=== PATIENT | male | born 1990 | race Caucasian/White ===

== ENCOUNTER 2020-08-28 05:53 | Emergency (ER) | payer OTHER, SELFPAY ==
[2020-08-28 05:57] VITALS: BP 162/109; PULSE 127; RESP 22; TEMP 35.7; O2SAT 100
[2020-08-28 06:10] VITALS: BP 176/104; PULSE 124; RESP 22; TEMP 37.1; O2SAT 99; BMI 21.7
--- NOTE | 2020-08-28 06:22 | ED.ABDPAIN ---
HPI - Abdominal Pain General Chief Complaint: Abdominal Pain Stated Complaint: Abd pain Time Seen by Provider: 08/28/20 06:22 Source: patient Mode of arrival: ambulatory Limitations: no limitations History of Present Illness MD elicited complaint: abdominal pain Pertinent past history: other (chronic belching hx of same in past for years) Onset (ago): year(s) (few) Pain Consistency: constant Location: epigastric Severity: mild Quality: fullness Radiation: epigastric Migration to: no migration Exacerbating factors: eating Relieving factors: nothing Context: history of similar episodes and other (states worse with anxiety has loud belches and then almost vomits not sure if it is a tic related to anxiety) Associated symptoms: nausea and other (ANXIETY) Treatments prior to arrival: other (DENIES) Related Data Previous Rx's Medication Instructions Recorded omeprazole 20 mg PO DAILY #14 cap 08/28/20 ondansetron 4 mg PO Q8H PRN #20 tab 08/28/20 Allergies Allergy/AdvReac Type Severity Reaction Status Date / Time amoxicillin [AMOXICILLIN] Allergy Unknown RASH Verified 08/28/20 06:16 Review of Systems Review of Systems Constitutional : No Weight loss, No Fever, No Chills ENT/Mouth : No sore throat, No Rhinorrhea Eyes: No Swelling, No Redness Cardiovascular : No Chest Pain, No SOB, NoEdema Respiratory : No Cough, No Sputum, No Wheezing Gastrointestinal : Positive Nausea, Positive Vomiting, positive Diarrhea at times, positive abdominal Pain, No Hematochezia, No Melena Genitourinary : No Dysuria, No Urinary Frequency, No Hematuria, No Urgency Musculoskeletal : No joint pain, No Myalgias, No Joint Swelling Skin : No Skin Lesions, No rash Neuro : No Weakness, No Numbness, No Dizziness, No Headache Psych : positive Anxiety/Panic, No Depression All other systems reviewed and are negative. Physical Exam Vital Signs: Vital Signs: Vital Signs Temp Pulse Resp BP Pulse Ox 08/28/20 08:00 100 18 131/92 H 97 08/28/20 06:10 98.8 F 124 H 22 H 176/104 H 99 08/28/20 05:57 96.3 F L 127 H 22 H 162/109 H 100 Body Mass Index 21.7 Appearance: Alert. Oriented X3. No acute distress. Anxious cannot sit still Eyes: Pupils equal, round and reactive to light. ENT: Pharynx normal. Neck: Normal inspection. Neck supple. CVS: Normal heart rate and rhythm. Pulses normal. Respiratory: No respiratory distress. Breath sounds normal. Abdomen: Soft and nontender. 1 loud sound heard during interview but not actual belch Skin: Skin warm and dry. Normal skin color. Normal skin turgor. Extremities: No lower extremity edema. No calf ttp Neuro: Oriented X 3. No motor deficit. No sensory deficit. Course Course Course Narrative: patient cleared at this time, feels better, VS and anxiety improved MDM - Abdominal Pain MDM Narrative Medical decision making narrative: 30 yo male with schizoaffective disorder at this time hx of chronic abdominal pain and belching with workups in past comes in with his belching worsening which might be anxiety related, given benign exam of abdomen and years of this doubt significant pathology this seems to be a tic driven by his anxiety Lab Data Result diagrams: 08/28/20 07:28 08/28/20 07:28 Labs: Lab Results 08/28/20 08/28/20 08/28/20 Range/Units 07:28 07:28 07:28 WBC 14.2 H (4.8-10.8) X10*3/uL RBC 4.40 L (4.60-5.80) X10*6/uL Hgb 12.1 L (14.0-18.0) g/dl Hct 37.7 L (42-52) % MCV 85.7 (80-98) fL MCH 27.5 (27.0-33.0) pg MCHC 32.1 (31.0-36.0) g/dl RDW 14.0 (11.0-16.0) % Plt Count 275 (160-400) X10*3/uL MPV 10.0 (9.4-12.4) fL Immature Gran % (Auto) 0.4 (0.0-0.4) % Neut % (Auto) 63.1 (45-73) % Lymph % (Auto) 26.7 (20-40) % [place] % (Auto) 7.1 (2-11) % Eos % (Auto) 2.5 (0-4) % Baso % (Auto) 0.2 (0-2) % Lymph # (Auto) 3.8 (1.2-4.9) X10*3/uL [place] # (Auto) 1.0 (0.1-1.2) X10*3/uL Eos # (Auto) 0.4 (0.0-0.4) X10*3/uL Baso # (Auto) 0.0 (0.0-0.2) X10*3/uL Abs Immat Gran (auto) 0.06 H (0.00-0.03) X10*3/uL Absolute Neuts (auto) 9.0 H (2.0-8.3) X10*3/uL Absolute Nucleated RBC 0.000 (0.0-0.012) X10*3/uL Nucleated RBC % (auto) 0.0 (0.0-0.2) /100WBC Sodium 139 (135-145) mmol/L Potassium 4.0 (3.3-5.1) mmol/l Chloride 105 (96-108) mmol/L Carbon Dioxide 28 (22-29) mmol/L Anion Gap 10 L (12-20) BUN 13 (9-16) mg/dL Creatinine 0.97 (0.5-1.4) mg/dL Estim Creat Clear Calc 120.0 Estimated GFR > 60 Random Glucose 112 (60-115) mg/dL Calcium 9.3 (8.4-10.2) mg/dL Total Bilirubin < 0.2 (0.0-1.0) mg/dL Direct Bilirubin < 0.2 (0.0-0.5) mg/dL AST 18 (5-37) U/L ALT 21 (0-40) U/L Alkaline Phosphatase 92 (39-117) U/L Total Protein 6.8 (6.5-8.0) g/dL Albumin 4.1 (3.5-5.0) g/dL Lipase 33 (8-78) U/L [place] 0.36 L (0.60-1.20) mmol/L Discharge Plan Discharge Clinical Impression: Belching Abdominal pain Qualifiers: Abdominal location: epigastric Qualified Code(s): R10.13 - Epigastric pain Patient Disposition: Home, Self-Care Instructions: Abdominal Pain (ED) Prescriptions: New omeprazole 20 mg capsule,delayed release(DR/EC) 20 mg PO DAILY Qty: 14 RF: 0 ondansetron 4 mg tablet,disintegrating 4 mg PO Q8H PRN (Reason: nausea and vomiting) Qty: 20 RF: 0 Referrals: Physician,Unknown [Primary Care Provider] - 2 days (if not better please call your doctor) Stand Alone Forms: Work/School Release COUNT INCLUDES THE [facility] Past Medical History Medical History Affective psychosis Social History Social History (Updated 08/28/20 @ 06:39 by Stephanie Loya DO) Alcohol intake: never Smoking Status: Current every day smoker Use of substances other than those prescribed or required for medical reasons: No Substance Use Type: Former Substance User Advance Directives: No
[2020-08-28] MEDS: Lidocaine HCl Viscous 2 % 15 ML SOLUTION MUCOUS MEM (07:10)
[2020-08-28] MEDS: LORazepam 1 MG TABLET PO ×2 (07:10→08:21)
[2020-08-28] MEDS: Magnesium Hydrox/Alum Hydrox 30 ML ORAL.SUSP PO (07:10)
[2020-08-28 07:31] LABS: MANUAL DIFF FLAG NO
[2020-08-28 07:33] LABS: Basophils Percent Auto 0.2 % (0-2); Eosinophils Absolute Auto 0.4 X10*3/uL (0.0-0.4); Eosinophils Percent Auto 2.5 % (0-4); Hematocrit 37.7 % (42-52); Hemoglobin 12.1 g/dl (14.0-18.0); Imm Gran Abs Auto 0.06 X10*3/uL (0.00-0.03); Imm Gran Pct Auto 0.4 % (0.0-0.4); Lymphocytes Absolute Auto 3.8 X10*3/uL (1.2-4.9); Lymphocytes Percent Auto 26.7 % (20-40); Mean Corpuscular HGB Conc 32.1 g/dl (31.0-36.0); Mean Corpuscular Hemoglobin 27.5 pg (27.0-33.0); Mean Corpuscular Volume 85.7 fL (80-98); Monocytes Percent Auto 7.1 % (2-11); Neutrophils Percent Auto 63.1 % (45-73); Platelet Count 275 X10*3/uL (160-400); White Blood Count 14.2 X10*3/uL (4.8-10.8)
[2020-08-28 08:00] VITALS: BP 131/92; PULSE 100; RESP 18; O2SAT 97
[2020-08-28 08:01] LABS: Lithium 0.36 mmol/L (0.60-1.20)
[2020-08-28 08:13] LABS: Alanine Aminotransferase 21 U/L (0-40); Albumin Level 4.1 g/dL (3.5-5.0); Alkaline Phosphatase 92 U/L (39-117); Anion Gap 10 (12-20); Aspartate Amino Transferase 18 U/L (5-37); Blood Urea Nitrogen 13 mg/dL (9-16); Calcium 9.3 mg/dL (8.4-10.2); Carbon Dioxide 28 mmol/L (22-29); Chloride 105 mmol/L (96-108); Estimated Glomerular Filt Rate > 60; Glucose Random 112 mg/dL (60-115); Lipase 33 U/L (8-78); Sodium 139 mmol/L (135-145); Total Protein 6.8 g/dL (6.5-8.0)
[2020-08-28 08:26] LABS: Bilirubin Direct < 0.2 mg/dL (0.0-0.5); Bilirubin Total < 0.2 mg/dL (0.0-1.0)
== END 2020-08-28 09:18 | disposition home or self-care (01) ==
PROVIDERS: Emergency Provider Emergency Medicine
DX: R10.13 Epigastric pain (principal); F41.1 Generalized anxiety disorder; F43.0 Acute stress reaction; Z79.899 Other long term (current) drug therapy
CPT/HCPCS: 36415; 80048; 80076; 80178; 83690; 85025; 99283; 99284

== ENCOUNTER 2020-12-04 07:07 | Emergency (ER) | payer OTHER, SELFPAY ==
--- NOTE | 2020-12-04 08:03 | ED.GENADULT ---
HPI - General Adult General Chief complaint: Upper Respiratory Symptoms Stated complaint: covid symptoms Time Seen by Provider: 12/04/20 07:59 Source: patient Mode of arrival: ambulatory Limitations: no limitations History of Present Illness HPI narrative: Patient's very anxious feel that he has COVID lost taste sensation since last night denies any fever no cough no shortness of breath very paranoid about COVID previous 2 tests last year were negative Onset (ago): day(s) (1) Related Data Previous Rx's Medication Instructions Recorded omeprazole 20 mg PO DAILY #14 cap 08/28/20 ondansetron 4 mg PO Q8H PRN #20 tab 08/28/20 azithromycin 500 mg tablet 500 mg PO ONCE 1 Days #4 tab 09/19/20 doxycycline hyclate 100 mg tablet 100 mg PO BID #28 tab 09/19/20 Allergies Allergy/AdvReac Type Severity Reaction Status Date / Time amoxicillin [AMOXICILLIN] Allergy Unknown RASH Verified 08/28/20 06:16 Review of Systems Review of Systems: Constitutional : No Weight loss, No Fever, No Chills ENT/Mouth : No sore throat, No Rhinorrhea Eyes: No Eye Pain, No Swelling Cardiovascular : No Chest Pain, no palpitations Respiratory : No Cough, No Sputum, no shortness of breath Gastrointestinal : no Nausea, No Vomiting, No Diarrhea, No abdominal Pain, no black stools Genitourinary : No Dysuria, No Urinary Frequency Musculoskeletal : No joint pain, No Myalgias, No Joint Swelling Skin : No Skin Lesions, No rash Neuro : No Weakness, No Numbness, No Dizziness, No Headache Psych : ++Anxiety/Panic, No Depression Heme/Lymph: No Bruising, No Lymphadenopathy Endocrine : No Polyuria, No Polydipsia All other systems reviewed and are negative [facility] Past Medical History Medical History Affective psychosis Social History Social History Alcohol intake: never Smoking Status: Current every day smoker Substance Use Type: Former Substance User Advance Directives: No Advance Directives Information Provided: No Physical Exam Vital Signs: Vital Signs: Last Vital Signs Temp 99 F 12/04/20 08:04 Pulse 109 H 12/04/20 08:04 Resp 16 12/04/20 08:04 BP 155/92 H 12/04/20 08:04 Pulse Ox 99 12/04/20 08:04 Body Mass Index 22.4 Appearance: Alert. Oriented X3. No acute distress. Very anxious Eyes: Pupils equal, round and reactive to light. ENT: Pharynx normal. Neck: Normal inspection. Neck supple. CVS: Normal heart rate and rhythm. Pulses normal. Respiratory: No respiratory distress. Breath sounds normal. Abdomen: Soft and nontender. Bowel sounds are present, no mass palpable, no CVA tenderness Skin: Skin warm and dry. Normal skin color. Normal skin turgor. Extremities: No lower extremity edema. Neuro: Oriented X 3. No motor deficit. No sensory deficit. Medical Decision Making Lab Data Lab results reviewed: Yes I reviewed the patient's lab results. Labs: Lab Results 12/04/20 Range/Units 08:11 COVID-19 (SHAYY) Negative (Negative) COVID-19 Clin Com See Note Discharge Plan Discharge Clinical Impression: COVID-19 Patient Disposition: Home, Self-Care Instructions: COVID-19 (Coronavirus Disease 2019) (ED) Additional Instructions: Give social distancing. Follow with PCP if high fever/ shortness of breath/not feeling better Prescriptions: No Action azithromycin 500 mg tablet 500 mg PO ONCE 1 Days Qty: 4 RF: 0 doxycycline hyclate 100 mg tablet 100 mg PO BID Qty: 28 RF: 0 omeprazole 20 mg capsule,delayed release(DR/EC) 20 mg PO DAILY Qty: 14 RF: 0 ondansetron 4 mg tablet,disintegrating 4 mg PO Q8H PRN (Reason: nausea and vomiting) Qty: 20 RF: 0
[2020-12-04 08:04] VITALS: BP 155/92; PULSE 109; RESP 16; TEMP 37.2; O2SAT 99; BMI 22.4
[2020-12-04 08:40] LABS: COVID-19 Test Negative (Negative)
== END 2020-12-04 09:00 | disposition home or self-care (01) ==
PROVIDERS: Emergency Provider Internal Medicine
DX: F41.9 Anxiety disorder, unspecified (principal); Z20.822 Contact with and (suspected) exposure to COVID-19; F17.200 Nicotine dependence, unspecified, uncomplicated
CPT/HCPCS: 36415; 87635; 99283

== ENCOUNTER 2021-11-24 01:50 | Inpatient (IN) | payer MEDICAID, SELFPAY ==
[2021-11-24] VITALS (7 sets, daily range): BP systolic 110–178; BP diastolic 64–80; PULSE 85–120; RESP 16–20; TEMP 36.7–38.4; O2SAT 97–100; BMI 21.1; BMI 21.7
--- NOTE | ~2021-11-24 | XR_ITS ---
EXAMINATION: XR CHEST CLINICAL INFORMATION: Fever. COMPARISON: Chest CTA of 04/26/2020 and chest x-ray of 04/24/2020 TECHNIQUE: Frontal view of the chest was obtained. FINDINGS: No significant abnormality is noted involving the heart, lungs, mediastinum, bony thorax or soft tissues. XR/XR chest 1V IMPRESSION: No radiographic evidence of pneumonia at this time. No acute pulmonary process. No significant interval change is noted compared to previous x-ray.
--- NOTE | ~2021-11-24 | CT_ITS ---
EXAMINATION: CT HUMERUS WITH CONTRAST, RIGHT CLINICAL INFORMATION: Known IV drug user. Swollen humerus. COMPARISON: None TECHNIQUE: Axial imaging. 85 mL Omnipaque 350. Images obtained after contrast administration. Additional delayed axial images obtained. Sagittal and coronal reconstructions. (Telephone call,, imaging reviewed with the technologist). This CT examination was performed using dose optimization techniques as appropriate, variously including the following: *Automated exposure control *Adjustment of mA and/or kV according to patient size (this includes techniques or standardized protocols for targeted exams where dose is matched to indication/reason for exam; i.e. extremities or head) *Use of iterative reconstruction technique DLP: 406 mGy-cm FINDINGS: Suboptimal imaging. Images are grainy. Suboptimal contrast enhancement. Evaluation is very limited on the provided imaging. There is apparent area of low-attenuation /heterogeneity in the muscles along the anterior aspect of the distal humerus. The margins are not well seen. This is estimated to extend over distance approximately 11.3 cm craniocaudal,; approximately 5.2 cm transverse, 2.4 cm AP when measured on image 7:112. These findings are not well evaluated, could represent myositis, infectious or inflammatory process. There is marked diffuse subcutaneous edema and soft tissue swelling in the humerus. At the level of the distal humerus, apparent area of more confluent low-attenuation in the anterior subcutaneous tissues and perhaps in anterior aspect of the muscle measuring 2.3 x 2.2 cm, (transverse, AP) image 3:114, see smiley image . This is not well-visualized on the reconstructions. The craniocaudal is estimated to be approximately 4 cm. This is of uncertain etiology. This could reflect an area of phlegmonous changes, abscess. No additional areas of gross peripherally enhancing collections identified. The visualized bones appear intact. No evidence of acute fracture or aggressive erosive changes. CT/CT humerus RT w con IMPRESSION: Suboptimal imaging, suboptimal visualization evaluation of the right humerus. Apparent ill-defined area of low attenuation and heterogeneity in the muscles along the anterior aspect of the distal humerus. This is suboptimally evaluated. This could represent an area of edema, myositis, infectious or inflammatory process. Apparent area of more confluent low-attenuation in the anterior subcutaneous tissues and perhaps the anterior aspect of the underlying muscle in the distal humerus. This is estimated to measure approximately 2.3 x 2.2 cm on the axial imaging. This is suboptimally imaged and evaluated. This could reflect an area of phlegmonous change, abscess. Recommend close clinical correlation. Additional/follow-up imaging as clinically warranted. The report will be called to the ordering clinician by a [facility] Physician Account Retention Representative.
[2021-11-24 02:38] LABS: MANUAL DIFF FLAG NO
[2021-11-24 02:46] LABS: Basophils Percent Auto 0.1 % (0-2); Eosinophils Percent Auto 0.2 % (0-4); Hematocrit 35.9 % (42.0-52.0); Hemoglobin 11.4 g/dl (14.0-18.0); Imm Gran Pct Auto 0.4 % (0.0-0.4); Lymphocytes Absolute Auto 1.3 X10*3/uL (1.2-4.9); Lymphocytes Percent Auto 5.7 % (20-40); Mean Corpuscular HGB Conc 31.8 g/dl (31.0-36.0); Mean Corpuscular Hemoglobin 26.9 pg (27.0-33.0); Mean Corpuscular Volume 84.7 fL (80.0-98.0); Mean Platelet Volume 9.8 fL (9.4-12.4); Monocytes Absolute Auto 1.1 X10*3/uL (0.1-1.2); Monocytes Percent Auto 4.8 % (2-11); Neutrophils Absolute Auto 19.8 x10*3/uL (2.0-8.3); Neutrophils Percent Auto 88.8 % (45-73); Platelet Count 243 X10*3/uL (160-400); Red Blood Count 4.24 X10*6/uL (4.60-5.80); Red Cell Distribution Width 14.8 % (11.0-16.0); White Blood Count 22.3 X10*3/uL (4.8-10.8)
[2021-11-24 02:54] LABS: COVID-19 Test Negative (Negative)
[2021-11-24 03:01] LABS: Lactic Acid 1.3 mmol/L (0.5-2.0)
[2021-11-24 03:05] LABS: Alanine Aminotransferase 25 U/L (0-40); Albumin Level 3.5 g/dL (3.5-5.0); Alkaline Phosphatase 79 U/L (39-117); Anion Gap 12 (12-20); Aspartate Amino Transferase 18 U/L (5-37); Bilirubin Total 0.5 mg/dL (0.0-1.0); Blood Urea Nitrogen 6 mg/dL (9-16); Calcium 8.6 mg/dL (8.4-10.2); Carbon Dioxide 24 mmol/L (22-29); Chloride 104 mmol/L (96-108); Creatinine Clr Calc Pharmacy 117.7; Estimated Glomerular Filt Rate > 60; Glucose Random 116 mg/dL (60-115); Potassium 3.5 mmol/L (3.3-5.1); Sodium 136 mmol/L (135-145); Total Protein 6.5 g/dL (6.5-8.0)
--- NOTE | 2021-11-24 07:03 | PC.NURSE ---
Pt received from recruiting and selection consultant: Pt AOX4 and offers no complaints- resting now. Cellulitis with pus filled sac noted to RAC. Pt is known IV meth user. Heart sounds normal, lungs clear.
--- NOTE | 2021-11-24 07:16 | ED.SKABFB ---
HPI - Skin/Abscess/Foreign Bdy General Chief complaint: Skin/Abscess/Foreign Body Stated complaint: R ARM PAIN Time Seen by Provider: 11/24/21 07:05 Source: patient Mode of arrival: ambulatory Limitations: no limitations History of Present Illness HPI narrative: Patient comes to the emergency room complaining of an upper arm infection on the right side. Patient states that he usually uses IV crystal meth. He injected in his right arm approximately 4 days ago but he missed the vein. Patient states that since then, he has had increased pain, swelling and redness in his right arm. Patient also complaining of subjective fever. Patient states that he has COVID like symptoms as well although he already had COVID about a year ago Related Data Previous Rx's Medication Instructions Recorded omeprazole 20 mg capsule,delayed 20 mg PO DAILY #14 cap 08/28/20 release ondansetron 4 mg disintegrating 4 mg PO Q8H PRN #20 tab 08/28/20 tablet azithromycin 500 mg tablet 500 mg PO ONCE 1 Days #4 tab 09/19/20 doxycycline hyclate 100 mg tablet 100 mg PO BID #28 tab 09/19/20 Allergies Allergy/AdvReac Type Severity Reaction Status Date / Time amoxicillin [AMOXICILLIN] Allergy Unknown RASH Verified 11/24/21 02:19 Review of Systems Review of Systems: Constitutional : No Weight loss, complaining of fever and chills, No Night Sweats, No Fatigue, No Malaise ENT/Mouth : No Hearing loss, No Ear Pain, No Nasal Congestion, No Sinus Pain, No Hoarseness, No sore throat, No Rhinorrhea, No Swallowing Difficulty Eyes: No Eye Pain, No Swelling, No Redness, No Foreign Body, No Discharge, No Vision Changes Cardiovascular : No Chest Pain, No SOB, No Dyspnea on Exertion, No Orthopnea, No Edema, No Palpitations Respiratory : No Cough, No Sputum, No Wheezing, No Smoke Exposure, No Dyspnea Gastrointestinal : No Nausea, No Vomiting, No Diarrhea, No Constipation, No abdominal Pain, No Hematochezia, No Melena Genitourinary : no irregular bleeding, No Dysuria, No Urinary Frequency, No Hematuria, No Urinary Incontinence, No Urgency, No Flank Pain, No Urinary Flow Changes, No Hesitancy Musculoskeletal : No joint pain, No Myalgias, No Joint Swelling Skin : Complaining of redness, swelling, and tenderness to touch on the skin over his right upper arm above the elbow Neuro : No Weakness, No Numbness, No Paresthesias, No Loss of Consciousness, No Dizziness, No Headache Psych : No Anxiety/Panic, No Depression, No SI/HI/AH/VH, No Social Issues, Heme/Lymph: No Bruising, No Bleeding,No Lymphadenopathy Endocrine : No Polyuria, No Polydipsia, No Temperature Intolerance PMF Past Medical History Medical History Affective psychosis Substance abuse Social History Social History Alcohol intake: never Substance Use Type: Former Substance User Advance Directives: No Physical Exam Vital Signs: Vital Signs: Last Vital Signs Temp 101.1 F H 11/24/21 07:47 Pulse 103 H 11/24/21 07:04 Resp 16 11/24/21 07:04 BP 113/69 11/24/21 07:04 Pulse Ox 97 11/24/21 07:04 BMI result Body Mass Index 21.1 Const: Other: Appearance: Alert. Oriented X3. No acute distress. Ill-appearing Eyes: Pupils equal, round and reactive to light. ENT: Pharynx normal. Neck: Normal inspection. Neck supple. No lymph nodes noted. No crepitus CVS: Normal heart rate and rhythm. Pulses normal. Normal S1 and S2, no murmurs Respiratory: No respiratory distress. Breath sounds normal. No Wheezing. No rales Abdomen: Soft and nontender. No rigidity. No distention Skin: Skin warm , pale and clammy. Patient has redness and swelling in the right upper arm. Patient is able to flex and extend his elbow but hurts his upper arm. Patient states he has no pain at the elbow joint. Patient able to close and open his hand Extremities: No lower extremity edema. No Lacerations. No Rash, no palpable/drainable abscess and right upper arm Neuro: Oriented X 3. No motor deficit. No sensory deficit. Moving all extermities. No slurred speech. Course Course Course Narrative: Patient has been in the emergency room for approximately 5 hours. Approximately 7 minutes ago, at 07:10 I got to see the patient for the 1st time. On physical exam patient is tachycardic and feels warmer than 99.1, I asked patient's nurse to take a rectal temperature. Patient is ill-appearing. Patient was started on vancomycin, Zosyn, and IV fluids. Patient states that he has had COVID in the past, but he is having recurrent symptoms, patient requesting to be tested again. Patient is negative for COVID-19. Patient is being admitted for cellulitis. MDM - Skin/Abscess/Foreign Bdy Lab Data Result diagrams: 11/24/21 02:30 11/24/21 02:30 Labs: Lab Results 11/24/21 11/24/21 11/24/21 Range/Units 02:30 02:30 02:30 WBC 22.3 H (4.8-10.8) X10*3/uL RBC 4.24 L (4.60-5.80) X10*6/uL Hgb 11.4 L (14.0-18.0) g/dl Hct 35.9 L (42.0-52.0) % MCV 84.7 (80.0-98.0) fL MCH 26.9 L (27.0-33.0) pg MCHC 31.8 (31.0-36.0) g/dl RDW 14.8 (11.0-16.0) % Plt Count 243 (160-400) X10*3/uL MPV 9.8 (9.4-12.4) fL Immature Gran % (Auto) 0.4 (0.0-0.4) % Neut % (Auto) 88.8 H (45-73) % Lymph % (Auto) 5.7 L (20-40) % [place] % (Auto) 4.8 (2-11) % Eos % (Auto) 0.2 (0-4) % Baso % (Auto) 0.1 (0-2) % Lymph # (Auto) 1.3 (1.2-4.9) X10*3/uL [place] # (Auto) 1.1 (0.1-1.2) X10*3/uL Eos # (Auto) 0.0 (0.0-0.4) X10*3/uL Baso # (Auto) 0.0 (0.0-0.2) X10*3/uL Abs Immat Gran (auto) 0.10 H (0.00-0.03) X10*3/uL Absolute Neuts (auto) 19.8 H (2.0-8.3) x10*3/uL Absolute Nucleated RBC 0.000 (0.0-0.012) X10*3/uL Nucleated RBC % (auto) 0.0 (0.0-0.2) /100WBC Sodium 136 (135-145) mmol/L Potassium 3.5 (3.3-5.1) mmol/L Chloride 104 (96-108) mmol/L Carbon Dioxide 24 (22-29) mmol/L Anion Gap 12 (12-20) BUN 6 L (9-16) mg/dL Creatinine 0.95 (0.5-1.4) mg/dL Estim Creat Clear Calc 117.7 Estimated GFR > 60 Random Glucose 116 H (60-115) mg/dL Lactic Acid 1.3 (0.5-2.0) mmol/L Calcium 8.6 D (8.4-10.2) mg/dL Total Bilirubin 0.5 (0.0-1.0) mg/dL AST 18 (5-37) U/L ALT 25 (0-40) U/L Alkaline Phosphatase 79 (39-117) U/L Total Protein 6.5 (6.5-8.0) g/dL Albumin 3.5 (3.5-5.0) g/dL COVID-19 (SHAYY) (Negative) COVID-19 Clin Com 11/24/21 Range/Units 02:30 WBC (4.8-10.8) X10*3/uL RBC (4.60-5.80) X10*6/uL Hgb (14.0-18.0) g/dl Hct (42.0-52.0) % MCV (80.0-98.0) fL MCH (27.0-33.0) pg MCHC (31.0-36.0) g/dl RDW (11.0-16.0) % Plt Count (160-400) X10*3/uL MPV (9.4-12.4) fL Immature Gran % (Auto) (0.0-0.4) % Neut % (Auto) (45-73) % Lymph % (Auto) (20-40) % [place] % (Auto) (2-11) % Eos % (Auto) (0-4) % Baso % (Auto) (0-2) % Lymph # (Auto) (1.2-4.9) X10*3/uL [place] # (Auto) (0.1-1.2) X10*3/uL Eos # (Auto) (0.0-0.4) X10*3/uL Baso # (Auto) (0.0-0.2) X10*3/uL Abs Immat Gran (auto) (0.00-0.03) X10*3/uL Absolute Neuts (auto) (2.0-8.3) x10*3/uL Absolute Nucleated RBC (0.0-0.012) X10*3/uL Nucleated RBC % (auto) (0.0-0.2) /100WBC Sodium (135-145) mmol/L Potassium (3.3-5.1) mmol/L Chloride (96-108) mmol/L Carbon Dioxide (22-29) mmol/L Anion Gap (12-20) BUN (9-16) mg/dL Creatinine (0.5-1.4) mg/dL Estim Creat Clear Calc Estimated GFR Random Glucose (60-115) mg/dL Lactic Acid (0.5-2.0) mmol/L Calcium (8.4-10.2) mg/dL Total Bilirubin (0.0-1.0) mg/dL AST (5-37) U/L ALT (0-40) U/L Alkaline Phosphatase (39-117) U/L Total Protein (6.5-8.0) g/dL Albumin (3.5-5.0) g/dL COVID-19 (SHAYY) Negative (Negative) COVID-19 Clin Com See Note Discharge Plan Discharge Clinical Impression: Cellulitis, Active substance abuse Patient Disposition: Admitted As Inpatient Prescriptions: No Action azithromycin 500 mg tablet 500 mg PO ONCE 1 Days Qty: 4 RF: 0 doxycycline hyclate 100 mg tablet 100 mg PO BID Qty: 28 RF: 0 omeprazole 20 mg capsule,delayed release(DR/EC) 20 mg PO DAILY Qty: 14 RF: 0 ondansetron 4 mg tablet,disintegrating 4 mg PO Q8H PRN (Reason: nausea and vomiting) Qty: 20 RF: 0
[2021-11-24] MEDS: Piperacillin Sodium/Tazobactam 4.5 GM in 0.9 % Sodium Chloride 100 ML IV (08:23)
[2021-11-24] MEDS: Acetaminophen 325 MG TABLET 650 MG PO (08:23)
[2021-11-24] MEDS: 0.9 % Sodium Chloride 2,500 ML 999 ML IVCONT (08:23)
[2021-11-24] MEDS: vancomycin HCL 750 MG in 0.9 % Sodium Chloride 250 ML 265 MG IV (09:05)
[2021-11-24 10:24] LABS: Amphetamine Screen Urine POSITIVE (Not Detect); Barbiturates, Urine Not Detected (Not Detect); Benzodiazepines Screen Urine POSITIVE (Not Detect); Cannabinoid Screen Urine Not Detected (Not Detect); Cocaine Screen Urine Not Detected (Not Detect); Fentanyl, urine POSITIVE (Not Detect); Opiate Screen Urine Not Detected (Not Detect); Phencyclidine Screen Urine Not Detected (Not Detect)
--- NOTE | 2021-11-24 10:24 | PHA.MEDREC ---
Pharmacy Consult ? Medication Reconciliation Pharmacy has completed the medication reconciliation. Patient has no recent fill history. Patient was not able to discuss medications, out of it and not speaking. Called the emergency contact and got an out of service message.
[2021-11-24 10:44] LABS: Appearance Urine CLEAR; Color Urine STRAW; Glucose Urine UA NEG (NEG); Leukocyte Esterase Urine NEG (NEG); Nitrite Urine NEG (NEG); PH 6.5 (5.0-8.0); Specific Gravity - Urine <= 1.005 (1.005-1.025); Urine Blood NEG (NEG); Urine Ketones NEG (NEG); Urine Protein NEG (NEG-TRACE)
--- NOTE | 2021-11-24 12:02 | PM.IMHP ---
History of Present Illness Date of Service: 11/24/21 Chief Complaint: With right upper extremity pain 31 years old male With IV drug abuse history, GERD who presents to the hospital with right upper extremity pain and swelling. The patient reports he uses IV crystal meth any injected himself almost 4 days ago but Mr. Rai and since then he noticed worsening in the swelling and pain in his right upper extremity. He reporting chills, fever, feeling sick with no drainage noted from the area. In the emergency blood work showed an evidence of sepsis. He was started on IV antibiotics broad-spectrum and brought to the hospital for further evaluation and treatment. Review of Systems Review of Systems: Reporting fever, chillsAnd generalized weakness No chest pain, palpitation No shortness of breath or coughing No abdominal pain, nausea or vomiting No urinary symptoms Right upper extremity pain and swelling with erythema noted. [facility] Medical History Affective psychosis Substance abuse Social History Household Members: Friend(s) Housing: Homeless Do you presently have visiting nurse or other home services: No Alcohol intake: never Patient Tobacco Use Status: Current everyday Tobacco user Tobacco use type: Cigarette Cigarettes Per Day: 10 Substance Use Type: IV Drugs service: No Current occupational status: unemployed Meds Allergies Allergy/AdvReac Type Severity Reaction Status Date / Time amoxicillin [AMOXICILLIN] Allergy Unknown RASH Verified 11/24/21 02:19 Active Medications: Current Medications Acetaminophen (Acetaminophen 325 Mg Tablet) 650 mg PO Q6H PRN PRN Reason: Pain, Mild (Pain Scale 1-3) Vancomycin HCl 1,000 mg/ (Sodium Chloride) 270 mls @ 270 mls/hr IV Q8H [facility] Ketorolac Tromethamine (Ketorolac Tromethamine 30 Mg/Ml Vial) 30 mg IVPUSH Q6H PRN PRN Reason: Pain, Mild (Pain Scale 1-3) Stop: 11/29/21 11:55 Ondansetron HCl (Ondansetron Hcl 4 Mg/2 Ml Vial) 4 mg IVPUSH Q8H PRN PRN Reason: Nausea and Vomiting Pharmacy Consult (Consult Rx Vancomycin Dosing) 1 each MISCELLANE DAILY PRN PRN Reason: Consult order Sodium Chloride (0.9 % Sodium Chloride Flush 3 Ml Syringe) 3 ml IVFLUSH QSHIFT [facility] Home Medications Medication Instructions Recorded Confirmed Last Taken Type diazepam 10 mg tablet (Valium) 10 mg PO TID 11/26/21 11/26/21 Unknown History Physical Exam Vital Signs and Narrative: Vital Signs: Last Vital Signs Temp 99.1 F 11/24/21 10:30 Pulse 103 H 11/24/21 07:04 Resp 16 11/24/21 07:04 BP 113/69 11/24/21 07:04 Pulse Ox 97 11/24/21 07:04 BMI result Body Mass Index 21.1 Const: Other: Constitutional : Alert With stimulation but falls back to sleep quickly not in distress Neck : Normal inspection, Supple Cardiovascular : RRR, S1 S2, no lower extremity edema Respiratory : Good bilateral air entry, no crackles, wheezes or rhonchi Gastrointestinal: soft, lax, Normal bowel sounds, Non tender Skin : Warm, Dry, RUE Significant swelling with erythema over the humerus with associated tenderness over the distal part, a white head can be seen with no drainage. Neurological : Alert & oriented x3, No focal deficit Results Labs CBC and Chem 7: 11/26/21 08:04 11/27/21 05:13 Labs: Laboratory Results - last 24 hr 11/24/21 11/24/21 11/24/21 02:30 02:30 02:30 MCV 84.7 MCH 26.9 L MCHC 31.8 RDW 14.8 Plt Count 243 MPV 9.8 Immature Gran % (Auto) 0.4 Neut % (Auto) 88.8 H Lymph % (Auto) 5.7 L [place] % (Auto) 4.8 Eos % (Auto) 0.2 Baso % (Auto) 0.1 Lymph # (Auto) 1.3 [place] # (Auto) 1.1 Eos # (Auto) 0.0 Baso # (Auto) 0.0 Abs Immat Gran (auto) 0.10 H Absolute Neuts (auto) 19.8 H Absolute Nucleated RBC 0.000 Nucleated RBC % (auto) 0.0 Anion Gap 12 Estim Creat Clear Calc 117.7 Estimated GFR > 60 Random Glucose 116 H Lactic Acid 1.3 Calcium 8.6 D Total Bilirubin 0.5 AST 18 ALT 25 Alkaline Phosphatase 79 Total Protein 6.5 Albumin 3.5 Urine Color Urine Appearance Urine pH Ur Specific [place] Urine Protein Urine Glucose (UA) Urine Ketones Urine Blood Urine Nitrite Ur Leukocyte Esterase Urine Opiates Screen Urine Fentanyl Screen Ur Barbiturates Screen Ur Phencyclidine Scrn Ur Amphetamines Screen U Benzodiazepines Scrn Urine Cocaine Screen U Marijuana (THC) Screen COVID-19 (SHAYY) COVID-19 Clin Com 11/24/21 11/24/21 11/24/21 02:30 09:59 09:59 MCV MCH MCHC RDW Plt Count MPV Immature Gran % (Auto) Neut % (Auto) Lymph % (Auto) [place] % (Auto) Eos % (Auto) Baso % (Auto) Lymph # (Auto) [place] # (Auto) Eos # (Auto) Baso # (Auto) Abs Immat Gran (auto) Absolute Neuts (auto) Absolute Nucleated RBC Nucleated RBC % (auto) Anion Gap Estim Creat Clear Calc Estimated GFR Random Glucose Lactic Acid Calcium Total Bilirubin AST ALT Alkaline Phosphatase Total Protein Albumin Urine Color STRAW Urine Appearance CLEAR Urine pH 6.5 Ur Specific [place] <= 1.005 Urine Protein NEG Urine Glucose (UA) NEG Urine Ketones NEG Urine Blood NEG Urine Nitrite NEG Ur Leukocyte Esterase NEG Urine Opiates Screen Not Detected Urine Fentanyl Screen POSITIVE H Ur Barbiturates Screen Not Detected Ur Phencyclidine Scrn Not Detected Ur Amphetamines Screen POSITIVE H U Benzodiazepines Scrn POSITIVE H Urine Cocaine Screen Not Detected U Marijuana (THC) Screen Not Detected COVID-19 (SHAYY) Negative COVID-19 Clin Com See Note Imaging Radiologist's Impressions: Impressions Chest X-Ray 11/24/21 08:35 IMPRESSION: No radiographic evidence of pneumonia at this time. No acute pulmonary process. No significant interval change is noted compared to previous x-ray. Assessment and Plan (1) Cellulitis: Status: Acute (2) Sepsis: Status: Acute (3) Active substance abuse: Status: Acute 31 years old male With IV drug abuse history, GERD who presents to the hospital with right upper extremity pain and swelling. Sepsis secondary RUE cellulitis Seem suppurative Pending CT scan with contrast Blood culture sent Start IV antibiotics of vancomycin To get surgery evaluation IV drug abuse To get addiction team evaluation advice DVT PPX early ambulation Quality Stroke Does the patient have a stroke diagnosis?: No VTE Prior VTE?: No VTE Risk Level:: Medical - moderate - high VTE Device Contraindication: Treatment Not Indicated VTE Drug Contraindication: Treatment Not Indicated
[2021-11-24] MEDS: iohexoL 350 MG/ML 100 ML INFUS..BTL 70 ML IV (12:23)
[2021-11-24] MEDS: Piperacillin Sodium/Tazobactam 3.375 GM in 0.9 % Sodium Chloride 50 ML IV ×2 (14:35→20:43)
--- NOTE | 2021-11-24 16:32 | MHC.RECOVSUP ---
Recovery Support note: Patient is a 31 year old Israeli speaking male who presented to [facility] ED due to an infection in his arm that occurred after using IV methamphetamine. Patient was sleeping however woke briefly to speak with this commercial lines underwriter. Patient reports he was sober for a long time , over a year, and that he relapsed four days ago. Informed patient that there was fentanyl in his toxicology report. Patient states he did not know he was using fentanyl and that he thought he was only using meth. Discussed harm reduction and the risk of overdose inherent in fentanyl use. Patient reports no withdrawal symptoms and states he has never experienced withdrawal. Recovery Support Team will follow up with patient later in his hospital stay to discuss recovery supports that are available to him.
[2021-11-24] MEDS: vancomycin HCL 1,000 MG in 0.9 % Sodium Chloride 250 ML 270 MG IV (18:44)
[2021-11-24] MEDS: 0.9 % Sodium Chloride Flush 3 ML SYRINGE IVFLUSH (20:45)
[2021-11-25] VITALS (7 sets, daily range): BP systolic 126–149; BP diastolic 53–79; PULSE 76–156; RESP 16–20; TEMP 35.5–37.1; O2SAT 94–100
[2021-11-25] MEDS: Piperacillin Sodium/Tazobactam 3.375 GM in 0.9 % Sodium Chloride 50 ML IV ×4 (02:47→19:53)
[2021-11-25] MEDS: vancomycin HCL 1,000 MG in 0.9 % Sodium Chloride 250 ML 270 MG IV (06:21)
[2021-11-25 07:07] LABS: Hematocrit 37.2 % (42.0-52.0); Hemoglobin 11.4 g/dl (14.0-18.0); Mean Corpuscular HGB Conc 30.6 g/dl (31.0-36.0); Mean Corpuscular Hemoglobin 26.4 pg (27.0-33.0); Mean Corpuscular Volume 86.1 fL (80.0-98.0); Mean Platelet Volume 10.2 fL (9.4-12.4); Platelet Count 283 X10*3/uL (160-400); Red Blood Count 4.32 X10*6/uL (4.60-5.80); Red Cell Distribution Width 14.9 % (11.0-16.0)
[2021-11-25 07:17] LABS: Anion Gap 11 (12-20); Blood Urea Nitrogen 8 mg/dL (9-16); Calcium 8.5 mg/dL (8.4-10.2); Carbon Dioxide 24 mmol/L (22-29); Chloride 106 mmol/L (96-108); Creatinine Clr Calc Pharmacy 157.7; Estimated Glomerular Filt Rate > 60; Glucose Random 91 mg/dL (60-115); Potassium 4.2 mmol/L (3.3-5.1); Sodium 137 mmol/L (135-145)
[2021-11-25] MEDS: 0.9 % Sodium Chloride Flush 3 ML SYRINGE IVFLUSH ×3 (08:20→20:28)
--- NOTE | 2021-11-25 09:19 | PM.CNGS ---
History of Present Illness Consult details Consult date: 11/25/21 Requesting physician: Milo Abdul Narrative: 31-year-old male patient with history of IV drug abuse presenting with complaints of right arm pain and swelling. He presented to the emergency department approximately 4 days after injecting crystal meth into the right antecubital fossa apparently missing a vein. He subsequently developed increased pain, redness, and swelling involving the entire right arm. This was associated with fever and chills. He denies bleeding or discharge from the injection site. He presented to the emergency department and was noted to have an area of erythema and edema involving the right antecubital fossa. Laboratories revealed an elevated WBC of 22.[address] of the humerus reveals ?Apparent ill-defined area of low attenuation and heterogeneity in the muscles along the anterior aspect of the distal humerus. This is suboptimally evaluated. This could represent an area of edema, myositis, infectious or inflammatory process. Apparent area of more confluent low-attenuation in the anterior subcutaneous tissues and perhaps the anterior aspect of the underlying muscle in the distal humerus. This is estimated to measure approximately 2.3 x 2.2 cm on the axial imaging. This is suboptimally imaged and evaluated. This could reflect an area of phlegmonous change, abscess.? Surgical consultation was requested for possible incision and drainage. Review of Systems Review of Systems: Yes Unobtainable due to mental condition PMFSH Past Medical History Medical History Affective psychosis Substance abuse Social History Social History Household Members: Friend(s) Housing: Homeless Do you presently have visiting nurse or other home services: No Alcohol intake: never Patient Tobacco Use Status: Current everyday Tobacco user Tobacco use type: Cigarette Cigarettes Per Day: 10 Patient Interested in Nicotine Replacement: Yes Patient Given Instructions on How to Stop Smoking: No (pt refused) Use of substances other than those prescribed or required for medical reasons: Yes Substance Use Type: IV Drugs Substance Use Frequency: Occasionally Last Used Substance: Days (ago) Currently Displaying Signs/Symptoms of Drug Intoxication Withdrawal: No Any prior treatment program specific to substance use: No (pt refused) Have you been hit, kicked, punched, or otherwise hurt by someone within the past year? If so, by whom?: No Do you feel safe in your current relationship?: No Current Relationship Is there a partner from a previous relationship who is making you feel unsafe now?: No Are you made to feel afraid or neglected: No Advance Directives: No Advance Directives Information Provided: No (declined) Do you have thoughts of harming others: None Do you have a plan to hurt others: No Plan Recently lost weight without trying: No Eating poorly because of decreased appetite: No Nutrition Risks: No Nutritional Risk Poor oral hygiene: No Meds Allergies Allergy/AdvReac Type Severity Reaction Status Date / Time amoxicillin [AMOXICILLIN] Allergy Unknown RASH Verified 11/24/21 02:19 Active Medications: Current Medications Acetaminophen (Acetaminophen 325 Mg Tablet) 650 mg PO Q6H PRN PRN Reason: Pain, Mild (Pain Scale 1-3) Hydroxyzine HCl (Hydroxyzine Hcl 50 Mg Tablet) 50 mg PO Q6H PRN PRN Reason: Anxiety Piperacillin Sod/Tazobactam (Sod 3.375 gm/ Sodium Chloride) 50 mls @ 100 mls/hr IV Q6H [facility] Last Infusion: 11/25/21 09:16 Dose: Infused Documented by: Vancomycin HCl 1,000 mg/ (Sodium Chloride) 270 mls @ 270 mls/hr IV Q12H [facility] Last Infusion: 11/25/21 07:30 Dose: Infused Documented by: Ketorolac Tromethamine (Ketorolac Tromethamine 30 Mg/Ml Vial) 30 mg IVPUSH Q6H PRN PRN Reason: Pain, Mild (Pain Scale 1-3) Stop: 11/29/21 11:55 Ondansetron HCl (Ondansetron Hcl 4 Mg/2 Ml Vial) 4 mg IVPUSH Q8H PRN PRN Reason: Nausea and Vomiting Pharmacy Consult (Consult Rx Vancomycin Dosing) 1 each MISCELLANE DAILY PRN PRN Reason: Consult order Sodium Chloride (0.9 % Sodium Chloride Flush 3 Ml Syringe) [facility] Last Admin: 11/25/21 08:20 Dose: 3 ml Documented by: Home Medications Medication Instructions Recorded Confirmed Last Taken Type No Known Home Meds 11/25/21 11/25/21 Unknown History Physical Exam Vital Signs: Vital Signs: Last Vital Signs Temp 96.8 F 11/25/21 07:28 Pulse 83 11/25/21 07:28 Resp 18 11/25/21 07:28 BP 131/61 11/25/21 07:28 Pulse Ox 98 11/25/21 07:28 BMI result Body Mass Index 21.7 Const: General: ill appearing and lethargic Nutritional Appearance: thin Orientation/consciousness: lethargic HENMT: Head: Yes normocephalic and Yes atraumatic Ears: hearing grossly normal bilaterally Eyes: Sclerae: sclerae normal Resp: Other: Breathing comfortably on room air, without respiratory distress GI: Inspection: Yes normal to inspection Skin: Other: Warm, dry, area of erythema in the right antecubital fossa. Extrem: Other: Right antecubital fossa with an apparent area of fluctuance located just above the crease with an area of crusted skin at the apparent injection site. No skin necrosis is identified. Palpation is suggestive of an underlying abscess. There is a surrounding area of erythema is light pink in color. Site is exquisitely tender to palpation. Elbow/forearm/wrist images: 1. Site of abscess right antecubital fossa Results Labs Result diagrams: 11/25/21 06:31 11/25/21 06:31 Labs: Abnormal lab results 11/24/21 11/25/21 11/25/21 Range/Units 09:59 06:31 06:31 WBC 18.0 H (4.8-10.8) X10*3/uL RBC 4.32 L (4.60-5.80) X10*6/uL Hgb 11.4 L (14.0-18.0) g/dl Hct 37.2 L (42.0-52.0) % MCH 26.4 L (27.0-33.0) pg MCHC 30.6 L (31.0-36.0) g/dl Anion Gap 11 L (12-20) BUN 8 L (9-16) mg/dL Urine Fentanyl Screen POSITIVE H (Not Detect) Ur Amphetamines Screen POSITIVE H (Not Detect) U Benzodiazepines Scrn POSITIVE H (Not Detect) Short CBC 11/25/21 Range/Units 06:31 WBC 18.0 H (4.8-10.8) X10*3/uL Hgb 11.4 L (14.0-18.0) g/dl Hct 37.2 L (42.0-52.0) % Plt Count 283 (160-400) X10*3/uL BMP 11/25/21 06:31 Sodium 137 Potassium 4.2 Chloride 106 Carbon Dioxide 24 BUN 8 L Creatinine 0.73 Calcium 8.5 Urine 11/24/21 Range/Units 09:59 Urine Color STRAW Urine Appearance CLEAR Urine pH 6.5 (5.0-8.0) Ur Specific [place] <= 1.005 (1.005-1.025) Urine Protein NEG (NEG-TRACE) MG/DL Urine Glucose (UA) NEG (NEG) MG/DL All other labs normal. Assessment and Plan (1) Abscess of right upper extremity: Status: Acute 31-year-old male patient presenting with a large antecubital abscess on the right side after injecting crystal meth approximately 5 days ago. He subsequently developed an area of redness, pain, swelling, and fluctuance and was found to have an elevated WBC and possible abscess by CT. I recommended incision and drainage at the bedside and after discussion of the procedure, risks, and alternatives, he gives his full consent. Procedure was performed at the bedside under local anesthesia. A large purulence collection was identified and drained. Wounds were then cultured, packed with Nu Gauze, and dressed with sterile dressings. Dressings can be changed as needed and on a daily basis. Procedures Date of Service Date of Service: 11/25/21 Abscess I/D Consent for Procedure: Elective - informed consent obtained Site: other (Right upper extremity antecubital fossa) Side (if applicable): right Sedation/analgesia: none Anesthetic used: with epi Technique: incised with #11 blade Amount of fluid (mL): 20 Irrigation: Yes Packing used?: plain Additional comments: Large collection of thick yellow purulent material drained. Wounds irrigated with saline solution. Patient tolerated the procedure well. Wound cultures obtained.
--- NOTE | 2021-11-25 10:04 | P.PNIM_ITS ---
Subjective Subjective Date of Service: 11/25/21 Interval History: F/u on cellulits and abscess of the arem s/p I and D at bedside this morning. Pain is controlled. Review of Systems no fever pain at the site Physical Exam Vital Signs: Vital Signs: Last Vital Signs Temp 96.8 F 11/25/21 07:28 Pulse 83 11/25/21 07:28 Resp 18 11/25/21 07:28 BP 131/61 11/25/21 07:28 Pulse Ox 98 11/25/21 07:28 BMI result Body Mass Index 21.7 Const: Other: General: AO X 3, no acute distress Resp: CTA bilateral CVS: S1,S2,RRR GI: +BS, NT, no distention Skin: No rash Neuro: motor grossly intact Psych: appropriate affect Objective Data Active Medications Acetaminophen (Acetaminophen 325 Mg Tablet) 650 mg PO Q6H PRN PRN Reason: Pain, Mild (Pain Scale 1-3) Hydroxyzine HCl (Hydroxyzine Hcl 50 Mg Tablet) 50 mg PO Q6H PRN PRN Reason: Anxiety Piperacillin Sod/Tazobactam (Sod 3.375 gm/ Sodium Chloride) 50 mls @ 100 mls/hr IV Q6H [facility] Last Infusion: 11/25/21 09:16 Dose: 0 mls/hr Documented by: DESHAWN Vancomycin HCl 1,000 mg/ (Sodium Chloride) 270 mls @ 270 mls/hr IV Q12H [facility] Last Infusion: 11/25/21 07:30 Dose: 0 mls/hr Documented by: DESHAWN Ketorolac Tromethamine (Ketorolac Tromethamine 30 Mg/Ml Vial) 30 mg IVPUSH Q6H PRN PRN Reason: Pain, Mild (Pain Scale 1-3) Stop: 11/29/21 11:55 Ondansetron HCl (Ondansetron Hcl 4 Mg/2 Ml Vial) 4 mg IVPUSH Q8H PRN PRN Reason: Nausea and Vomiting Pharmacy Consult (Consult Rx Vancomycin Dosing) 1 each MISCELLANE DAILY PRN PRN Reason: Consult order Sodium Chloride (0.9 % Sodium Chloride Flush 3 Ml Syringe) 3 ml IVFLUSH QSHIFT [facility] Last Admin: 11/25/21 08:20 Dose: 3 ml Documented by: DESHAWN Labs CBC & Chem 7: 11/25/21 06:31 11/25/21 06:31 Labs: Laboratory Results - last 24 hr 11/24/21 11/24/21 11/25/21 09:59 09:59 06:31 MCV 86.1 MCH 26.4 L MCHC 30.6 L RDW 14.9 Plt Count 283 MPV 10.2 Absolute Nucleated RBC 0.000 Nucleated RBC % (auto) 0.0 Anion Gap Estim Creat Clear Calc Estimated GFR Random Glucose Calcium Urine Color STRAW Urine Appearance CLEAR Urine pH 6.5 Ur Specific [place] <= 1.005 Urine Protein NEG Urine Glucose (UA) NEG Urine Ketones NEG Urine Blood NEG Urine Nitrite NEG Ur Leukocyte Esterase NEG Urine Opiates Screen Not Detected Urine Fentanyl Screen POSITIVE H Ur Barbiturates Screen Not Detected Ur Phencyclidine Scrn Not Detected Ur Amphetamines Screen POSITIVE H U Benzodiazepines Scrn POSITIVE H Urine Cocaine Screen Not Detected U Marijuana (THC) Screen Not Detected 11/25/21 06:31 MCV MCH MCHC RDW Plt Count MPV Absolute Nucleated RBC Nucleated RBC % (auto) Anion Gap 11 L Estim Creat Clear Calc 157.7 Estimated GFR > 60 Random Glucose 91 Calcium 8.5 Urine Color Urine Appearance Urine pH Ur Specific [place] Urine Protein Urine Glucose (UA) Urine Ketones Urine Blood Urine Nitrite Ur Leukocyte Esterase Urine Opiates Screen Urine Fentanyl Screen Ur Barbiturates Screen Ur Phencyclidine Scrn Ur Amphetamines Screen U Benzodiazepines Scrn Urine Cocaine Screen U Marijuana (THC) Screen Microbiology Microbiology Results: Microbiology 11/24/21 07:46 Blood Culture - Preliminary Blood - Venous No growth after 24 hours. 11/24/21 02:30 Blood Culture - Preliminary Blood - Venous No growth after 24 hours. Assessment and Plan (1) Abscess of right upper extremity: Status: Acute (2) Sepsis: Status: Acute Assessment and Plan: ?31-year-old male with large antecubital abscess on the right side after injecting crystal meth in the area s/p I anD at bedside by surgery on 11/25 plan: Continue IV Abx (Vanco and Zosyn) for at least on more day, daily dressing changes. Follow cultures Quality Stroke Does the patient have a stroke diagnosis?: No VTE Prior VTE?: No VTE Risk Level:: Medical - moderate - high VTE Device Contraindication: Treatment Not Indicated VTE Drug Contraindication: Treatment Not Indicated
[2021-11-25 10:30] LABS: Vancomycin Trough 12.9 mcg/mL (10.0-20.0)
--- NOTE | 2021-11-25 11:01 | MHC.CM.PN ---
EMR REVIEWED, PT ADMITTED W/SEPSISR UPPER EXTREMITY CELLULITIS, CM MET W/PT WHO IS A&O, PT REPORTS HE HAS BEEN STAYING AT [facility], PT IS INDEPENDENT W/ALL CARE, NO DME AND NO HOME/OUTSIDE SERVICES, PT HAS ALREADY MET W/RECOVERY VAN CDL DRIVER, PT DENIES HAVING PCP OR HCP AND MAY WANT TO COMPLETE ONE PRIOR TO D/C, PT REPORTS HE HAD THE [employer] VACCINE UNSURE OF DATE AND REPORTS HE HAD IT IN [place] OR [facility], PT DECLINES HAVING BOOSTER, PT DOES REPORT HE HAS INSUANCEKVNG FROM [place]. D/C PLAN: RETURN TO [facility] VS STR IF NEEDING VARNISHER APPRENTICE IV ABX, TRANSPORT DEPENDENT ON DISPO.
--- NOTE | 2021-11-25 15:43 | MHC.RECOVSUP ---
Recovery Support note: This freelance copywriter followed up with patient to discuss withdrawal symptoms and recovery supports. Patient continues to deny withdrawal. Patient states he is overwhelmed with everything and experiencing anxiety. Patient reports he previously went to a [facility] and found it very helpful and that N continued to work with him for a period of time. Patient expresses interest in getting back into treatment. Discussed recovery supports with patient. Patient is interested in meeting with a Net Sql Developer while in the hospital. Net Sql Developer will attempt to meet with patient later tonight. This freelance copywriter will follow up with patient tomorrow to further discuss treatment options. Informed patient's RN of anxiety.
[2021-11-25] MEDS: hydrOXYzine HCL 50 MG TABLET PO (17:44)
--- NOTE | 2021-11-25 18:44 | MHC.RECOVSUP ---
? Reason for consult :Recovery Support o Current location: [facility] o Identified substance use concern: Heroin - Support ? Intervention: o Community resources provided o Harm reduction discussion ? Plan: o Follow up tomorrow o Patient to follow up with [facility] after discharge ? Additional information: Met with Patient and we talk harm reduction and Recovery... Patient stated that he want to go to a financial institution treasurer Program.. He also stated that he needs help changing insurance so he could go to a detox here in [place].
[2021-11-25] MEDS: vancomycin HCL 1,250 MG in 0.9 % Sodium Chloride 250 ML 166.67 MG IV (20:25)
[2021-11-26 03:06] VITALS: BP 123/75; PULSE 65; RESP 18; TEMP 36; O2SAT 99
[2021-11-26] MEDS: Piperacillin Sodium/Tazobactam 3.375 GM in 0.9 % Sodium Chloride 50 ML IV ×4 (03:09→20:27)
[2021-11-26] MEDS: vancomycin HCL 1,250 MG in 0.9 % Sodium Chloride 250 ML 166.67 MG IV (03:41)
[2021-11-26 07:12] VITALS: BP 135/76; PULSE 68; RESP 20; TEMP 36.9; O2SAT 99
[2021-11-26 08:24] LABS: Hematocrit 34.1 % (42.0-52.0); Hemoglobin 10.6 g/dl (14.0-18.0); Mean Corpuscular HGB Conc 31.1 g/dl (31.0-36.0); Mean Corpuscular Hemoglobin 26.2 pg (27.0-33.0); Mean Corpuscular Volume 84.2 fL (80.0-98.0); Mean Platelet Volume 9.9 fL (9.4-12.4); Platelet Count 351 X10*3/uL (160-400); Red Blood Count 4.05 X10*6/uL (4.60-5.80); Red Cell Distribution Width 14.6 % (11.0-16.0); White Blood Count 10.7 X10*3/uL (4.8-10.8)
--- NOTE | 2021-11-26 09:27 | HO.PM.IMPN ---
Subjective Subjective Date of Service: 11/26/21 Interval History: F/u on cellulits and abscess of the arem s/p I and D at bedside this morning. Feels better, less swelling in arm Review of Systems no fever pain at the site Physical Exam Vital Signs: Vital Signs: Last Vital Signs Temp 98.4 F 11/26/21 07:12 Pulse 68 11/26/21 07:12 Resp 20 11/26/21 07:12 BP 135/76 11/26/21 07:12 Pulse Ox 99 11/26/21 07:12 BMI result Body Mass Index 21.7 Const: Other: General: AO X 3, no acute distress Resp: CTA bilateral CVS: S1,S2,RRR GI: +BS, NT, no distention Skin: No rash Neuro: motor grossly intact Psych: appropriate affect Objective Data Active Medications Acetaminophen (Acetaminophen 325 Mg Tablet) 650 mg PO Q6H PRN PRN Reason: Pain, Mild (Pain Scale 1-3) Hydroxyzine HCl (Hydroxyzine Hcl 50 Mg Tablet) 50 mg PO Q6H PRN PRN Reason: Anxiety Last Admin: 11/25/21 17:44 Dose: 50 mg Documented by: DESHAWN Piperacillin Sod/Tazobactam (Sod 3.375 gm/ Sodium Chloride) 50 mls @ 100 mls/hr IV Q6H [facility] Last Infusion: 11/26/21 03:41 Dose: 0 mls/hr Documented by: GUILLERMO Vancomycin HCl 1,250 mg/ (Sodium Chloride) 250 mls @ 166.667 mls/hr IV Q8H [facility] Last Infusion: 11/26/21 05:16 Dose: 0 mls/hr Documented by: GUILLERMO Ketorolac Tromethamine (Ketorolac Tromethamine 30 Mg/Ml Vial) 30 mg IVPUSH Q6H PRN PRN Reason: Pain, Mild (Pain Scale 1-3) Stop: 11/29/21 11:55 Ondansetron HCl (Ondansetron Hcl 4 Mg/2 Ml Vial) 4 mg IVPUSH Q8H PRN PRN Reason: Nausea and Vomiting Pharmacy Consult (Consult Rx Vancomycin Dosing) 1 each MISCELLANE DAILY PRN PRN Reason: Consult order Sodium Chloride (0.9 % Sodium Chloride Flush 3 Ml Syringe) 3 ml IVFLUSH QSHIFT [facility] Last Admin: 11/25/21 20:28 Dose: 3 ml Documented by: GUILLERMO Labs CBC & Chem 7: 11/26/21 08:04 11/25/21 06:31 Labs: Laboratory Results - last 24 hr 11/25/21 11/25/21 11/26/21 09:45 17:43 08:04 MCV 84.2 MCH 26.2 L MCHC 31.1 RDW 14.6 Plt Count 351 MPV 9.9 Absolute Nucleated RBC 0.000 Nucleated RBC % (auto) 0.0 Vancomycin Trough 12.9 4.0 L Microbiology Microbiology Results: Microbiology 11/24/21 02:30 Blood Culture - Preliminary Blood - Venous No growth after 48 hours. 11/25/21 09:10 Gram Stain - Final Arm Right 11/24/21 07:46 Blood Culture - Preliminary Blood - Venous No growth after 24 hours. Assessment and Plan (1) Abscess of right upper extremity: Status: Acute (2) Sepsis: Status: Acute Assessment and Plan: ?31-year-old male with large antecubital abscess on the right side after injecting crystal meth in the area s/p I anD at bedside by surgery on 11/25 plan: Continue IV Abx (Vanco and Zosyn) for at least on more day, daily dressing changes. Follow cultures, so far negative Quality Stroke Does the patient have a stroke diagnosis?: No VTE Prior VTE?: No VTE Risk Level:: Medical - moderate - high VTE Device Contraindication: Treatment Not Indicated VTE Drug Contraindication: Treatment Not Indicated
--- NOTE | 2021-11-26 09:33 | P.DS_ITS ---
DS: Providers Provider Date of Service: 11/27/21 Date of admission: 11/24/21 11:56 Primary care physician: None Physician Consults: 11/24/21 11:56 Consult to General Surgery Routine Consulting Provider: Hiram Barillas Reason for consultation: Right upper extremity suppurative cellulitis 11/25/21 07:22 Addiction Medicine Routine Consulting Provider: Mary Kate Badillo Reason for consultation: Multidrug abuse DS: Diagnosis Discharge Diagnosis (1) Abscess of right upper extremity: Status: Acute (2) Sepsis: Status: Acute DS: Summary Hospital Course Hospital Course: Chief Complaint: With right upper extremity pain 31 years old male With IV drug abuse history, GERD who presents to the hospital with right upper extremity pain and swelling.? The patient reports he uses IV crystal meth any injected himself almost 4 days ago but Vein and since then he noticed worsening in the swelling and pain in his right upper extremity.? He reporting chills, fever, feeling sick with no drainage noted from the area. In the emergency blood work showed an evidence of sepsis.? He was started on IV antibiotics broad-spectrum and brought to the hospital for further evaluation and treatment. Hospital course: 31-year-old male with large antecubital abscess on the right side after injecting crystal meth in the area, the area was I and D'd by surgery and he has been on IV Vanco and Zosyn, cultures grew group A strep, given a dose of Ceftriaxone in hospital. He doesn't want to be here any more. Will. The area looks better, will switch to oral Ceftin and to follow up with Dr. Neri. Substance use discouraged. He understands he is leaving against advise and assume all risks including, complication leading to sepsis or . He is of sound mind at this time able to repeat back in his own word. He said his ride is on the way to pick him up Time Spent with Patient Time attestation: Total time spent providing and/or coordinating discharge services: Discharge coordination time: Greater than 30 minutes Quality: Stroke Does the patient have a stroke diagnosis?: No Physical Exam Verdana 4l Vital Signs: Verdana 4d Verdana 4d Vital Signs: Verdana 4d Verdana 4Bd Last Vital Signs Verdana 4d Casino Duty Manager New 4d Casino Duty Manager New 4d Temp 98.4 F 11/26/21 07:12 Casino Duty Manager New 4d Pulse 68 11/26/21 07:12 Javier Abernathy 4d Resp 20 11/26/21 07:12 BP 135/76 11/26/21 07:12 Pulse Ox 99 11/26/21 07:12 BMI result Body Mass Index 21.7 DS: Data Data Completed and Pending Labs on day of discharge: Laboratory Results - last 24 hr 11/25/21 11/25/21 11/26/21 09:45 17:43 08:04 WBC 10.7 RBC 4.05 L Hgb 10.6 L Hct 34.1 L MCV 84.2 MCH 26.2 L MCHC 31.1 RDW 14.6 Plt Count 351 MPV 9.9 Absolute Nucleated RBC 0.000 Nucleated RBC % (auto) 0.0 Vancomycin Trough 12.9 4.0 L Preliminary micro results at discharge 11/24/21 02:30 Blood Culture - Preliminary Blood - Venous No growth after 48 hours. 11/24/21 07:46 Blood Culture - Preliminary Blood - Venous No growth after 24 hours. Discharge Plan Discharge Anticipated Discharge Date/Time: 11/27/21 12:05 Patient Disposition: Left Against Medical Advice Discharge Diagnosis: Cellulitis and abscess of the arm Referrals: Physician,None [Primary Care Provider] - 1 Week Hiram Barillas MD [Physician] - 1 Week (Call for appointment) Discharge Medications: New cefuroxime axetil 500 mg tablet 500 mg PO BID 7 Days Qty: 14 RF: 0 Continued diazepam [Valium] 10 mg Tablet 10 mg PO TID RF: 0 Discharge Orders: Discharge Order (Routine); Ordered 11/27/21 Ordered By: Dewayne Amaya Diet: advance to usual diet Activity on Discharge: As tolerated Care Plan Goals: Full recovery from cellulitis and abscess Health Concerns: Cellulitis due to injected drug site Plan of Treatment: Take Ceftin as recommended and follow up with Dr. Barillas, avoid substance use Dry dressing changes to area daily, Assessment: as above
[2021-11-26] MEDS: 0.9 % Sodium Chloride Flush 3 ML SYRINGE IVFLUSH ×3 (09:34→23:19)
[2021-11-26] MEDS: Ketorolac Tromethamine 30 MG/ML VIAL IVPUSH (09:36)
[2021-11-26] MEDS: hydrOXYzine HCL 50 MG TABLET PO (09:36)
[2021-11-26 11:48] VITALS: BP 126/65; PULSE 101; RESP 20; TEMP 36.2; O2SAT 99
[2021-11-26] MEDS: diazePAM 5 MG TABLET 10 MG PO ×2 (12:18→20:28)
[2021-11-26] MEDS: vancomycin HCL 1,250 MG in 0.9 % Sodium Chloride 250 ML 166.6 MG IV ×2 (12:19→21:18)
--- NOTE | 2021-11-26 13:42 | MHC.RECOVRN ---
Met with pt this morning to check in and offer recovery support. Pt reports using methamphetamines and occasionally heroin. Pt has not experienced any opioid withdrawal and does not expect to, reports the fentanyl in UDS was in the methamphetamine and pt has not used heroin recently. Pt is not interested in MOUD. Pt concerned over prescription medications that are not being administered, reports being prescribed Valium, 30 mg daily, from psych provider in [place]. Pt also states I have a lot of other psych meds I'm not getting here either. Pt is looking to transition from [place] health insurance to [facility] in order to secure providers locally, as pt is moving in with parents in [place], [place]. Pt denies other questions or concerns for t/w. Discussed with pts RN as well as Mary Kate Badillo APRN.
--- NOTE | 2021-11-26 14:22 | MHC.CM.PN ---
PATIENT TO DC HOME - SELF CARE. RN AWARE OF PLAN.
[2021-11-26 15:28] VITALS: BP 114/65; PULSE 74; RESP 18; TEMP 36.2; O2SAT 100
--- NOTE | 2021-11-26 15:44 | PM.PNGS ---
Subjective Subjective Date of Service: 11/26/21 Interval history: Patient feels improved with decreased pain in the right arm. Still notes swelling however. The wounds continue to drain purulent fluid. Physical Exam Vital Signs: Vital Signs: Last Vital Signs Temp 97.2 F 11/26/21 15:28 Pulse 74 11/26/21 15:28 Resp 18 11/26/21 15:28 BP 114/65 11/26/21 15:28 Pulse Ox 100 11/26/21 15:28 BMI result Body Mass Index 21.7 Const: General: cooperative, no acute distress and alert Nutritional Appearance: well nourished Orientation/consciousness: patient oriented x3 Limitations: no limitations Skin: Other: Warm, dry, no rash Neuro: General: patient oriented x3 Extrem: Other: Right arm I and D site open and draining packing intact. Objective Data Active Medications Acetaminophen (Acetaminophen 325 Mg Tablet) 650 mg PO Q6H PRN PRN Reason: Pain, Mild (Pain Scale 1-3) Diazepam (Diazepam 5 Mg Tablet) 10 mg PO TID [facility] Last Admin: 11/26/21 12:18 Dose: 10 mg Documented by: BRETT Hydroxyzine HCl (Hydroxyzine Hcl 50 Mg Tablet) 50 mg PO Q6H PRN PRN Reason: Anxiety Last Admin: 11/26/21 09:36 Dose: 50 mg Documented by: BRETT Piperacillin Sod/Tazobactam (Sod 3.375 gm/ Sodium Chloride) 50 mls @ 100 mls/hr IV Q6H [facility] Last Admin: 11/26/21 15:18 Dose: 100 mls/hr Documented by: BRETT Vancomycin HCl 1,250 mg/ (Sodium Chloride) 250 mls @ 166.667 mls/hr IV Q8H [facility] Last Infusion: 11/26/21 14:04 Dose: 0 mls/hr Documented by: BRETT Ketorolac Tromethamine (Ketorolac Tromethamine 30 Mg/Ml Vial) 30 mg IVPUSH Q6H PRN PRN Reason: Pain, Mild (Pain Scale 1-3) Stop: 11/29/21 11:55 Last Admin: 11/26/21 09:36 Dose: 30 mg Documented by: BRETT Ondansetron HCl (Ondansetron Hcl 4 Mg/2 Ml Vial) 4 mg IVPUSH Q8H PRN PRN Reason: Nausea and Vomiting Pharmacy Consult (Consult Rx Vancomycin Dosing) 1 each MISCELLANE DAILY PRN PRN Reason: Consult order Sodium Chloride (0.9 % Sodium Chloride Flush 3 Ml Syringe) 3 ml IVFLUSH QSHIFT [facility] Last Admin: 11/26/21 15:18 Dose: 3 ml Documented by: BRETT Labs CBC & Chem 7: 11/26/21 08:04 11/25/21 06:31 Labs: Laboratory Results - last 24 hr 11/25/21 11/26/21 17:43 08:04 MCV 84.2 MCH 26.2 L MCHC 31.1 RDW 14.6 Plt Count 351 MPV 9.9 Absolute Nucleated RBC 0.000 Nucleated RBC % (auto) 0.0 Vancomycin Trough 4.0 L Microbiology Microbiology Results: Microbiology 11/25/21 09:10 Gram Stain - Final Arm Right Routine Culture - Final Streptococcus pyogenes (Grp A) 11/24/21 07:46 Blood Culture - Preliminary Blood - Venous No growth after 48 hours. 11/24/21 02:30 Blood Culture - Preliminary Blood - Venous No growth after 48 hours. Procedures Date of Service Date of Service: 11/26/21 Progress Note: A&P Assessment and plan (1) Abscess of right upper extremity: Status: Acute Assessment and Plan: 31-year-old male patient status post incision and drainage of an abscess at the antecubital fossa following subcutaneous injection of crystal meth. Wound cultures revealed group a strep. Site continues to drain pus but does feel improved with decreased pain. Continue local wound care. Packing could be removed in 2-3 days. Antibiotics per hospitalist team. Fall Risk Details Current Medications: Current Medications Acetaminophen (Acetaminophen 325 Mg Tablet) 650 mg PO Q6H PRN PRN Reason: Pain, Mild (Pain Scale 1-3) Diazepam (Diazepam 5 Mg Tablet) 10 mg PO TID [facility] Last Admin: 11/26/21 12:18 Dose: 10 mg Documented by: Hydroxyzine HCl (Hydroxyzine Hcl 50 Mg Tablet) 50 mg PO Q6H PRN PRN Reason: Anxiety Last Admin: 11/26/21 09:36 Dose: 50 mg Documented by: Piperacillin Sod/Tazobactam (Sod 3.375 gm/ Sodium Chloride) 50 mls @ 100 mls/hr IV Q6H [facility] Last Admin: 11/26/21 15:18 Dose: 100 mls/hr Documented by: Vancomycin HCl 1,250 mg/ (Sodium Chloride) 250 mls @ 166.667 mls/hr IV Q8H [facility] Last Infusion: 11/26/21 14:04 Dose: Infused Documented by: Ketorolac Tromethamine (Ketorolac Tromethamine 30 Mg/Ml Vial) 30 mg IVPUSH Q6H PRN PRN Reason: Pain, Mild (Pain Scale 1-3) Stop: 11/29/21 11:55 Last Admin: 11/26/21 09:36 Dose: 30 mg Documented by: Ondansetron HCl (Ondansetron Hcl 4 Mg/2 Ml Vial) 4 mg IVPUSH Q8H PRN PRN Reason: Nausea and Vomiting Pharmacy Consult (Consult Rx Vancomycin Dosing) 1 each MISCELLANE DAILY PRN PRN Reason: Consult order Sodium Chloride (0.9 % Sodium Chloride Flush 3 Ml Syringe) 3 ml IVFLUSH QSHIFT [facility] Last Admin: 11/26/21 15:18 Dose: 3 ml Documented by: Time Spent With Patient Time: Total time spent is greater than 50% in coordination of care (as documented) at patient's floor/unit and/or counseling patient: Time with patient: less than 15 minutes Quality Stroke Does the patient have a stroke diagnosis?: No VTE Prior VTE?: No VTE Risk Level:: Medical - moderate - high VTE Device Contraindication: Treatment Not Indicated VTE Drug Contraindication: Treatment Not Indicated
[2021-11-26 18:44] LABS: Vancomycin Trough 16.8 mcg/mL (10.0-20.0)
[2021-11-26 20:00] VITALS: BP 121/59; PULSE 85; RESP 18; TEMP 36.2; O2SAT 99
[2021-11-26 20:04] LABS: Creatinine Clr Calc Pharmacy 133.9; Estimated Glomerular Filt Rate > 60
[2021-11-27] VITALS: BP 126/72; PULSE 57; RESP 18; TEMP 36.6; O2SAT 97
[2021-11-27] MEDS: Piperacillin Sodium/Tazobactam 3.375 GM in 0.9 % Sodium Chloride 50 ML IV ×2 (03:40→07:20)
[2021-11-27 03:47] VITALS: BP 104/67; PULSE 63; RESP 18; TEMP 36.6; O2SAT 99
[2021-11-27] MEDS: vancomycin HCL 1,250 MG in 0.9 % Sodium Chloride 250 ML 166.6 MG IV (04:26)
[2021-11-27 06:05] LABS: Creatinine Clr Calc Pharmacy 145.7; Estimated Glomerular Filt Rate > 60
[2021-11-27] MEDS: diazePAM 5 MG TABLET 10 MG PO (07:19)
[2021-11-27 07:26] VITALS: BP 120/74; PULSE 65; RESP 18; TEMP 36.8; O2SAT 98
[2021-11-27] MEDS: 0.9 % Sodium Chloride Flush 3 ML SYRINGE IVFLUSH (07:28)
[2021-11-27] MEDS: cefTRIAXone sodium 2 GM in 0.9 % Sodium Chloride 50 ML IV (08:31)
[2021-11-27 11:26] VITALS: PULSE 90; RESP 20; TEMP 36.4
== END 2021-11-27 12:33 | disposition left against medical advice (07) | DRG 720 ==
LOC: HO.ED 09:04 → HO.EDOVER 12:12 → HO.S3 15:55
PROVIDERS: Admitting Provider Student in an Organized Health Care Education/Training Program; Emergency Provider Emergency Medicine; Visit Provider Internal Medicine
DX: A41.9 Sepsis, unspecified organism (principal); F15.10 Other stimulant abuse, uncomplicated; L02.413 Cutaneous abscess of right upper limb; F17.210 Nicotine dependence, cigarettes, uncomplicated; Z20.822 Contact with and (suspected) exposure to COVID-19; K21.9 Gastro-esophageal reflux disease without esophagitis; Z59.02 Unsheltered homelessness; Z88.0 Allergy status to penicillin; Z79.899 Other long term (current) drug therapy
CPT/HCPCS: 36415; 71045; 73201; 80048; 80053; 80202; 80307; 81003; 82565; 83605; 85025; 85027; 87040; 87071; 87147; 87205; 87635; 99024; 99285; J0696; J1885; J2543; J3370; Q9967

== ENCOUNTER 2021-12-16 19:35 | Emergency (ER) | payer MEDICAID, SELFPAY ==
--- NOTE | 2021-12-16 19:39 | ED_ITS ---
HPI - Overdose General Chief Complaint: Overdose Stated Complaint: HEROIN OD,12MG NARCAN GIVEN W/GOOD RESULT PER EMS Time Seen by Provider: 12/16/21 19:39 History of Present Illness HPI Narrative: 31 years old with a history heroin abuse. Was found not breathing. Given 12 of Narcan nasally. Patient woke up. Has no specific complaints. Patient uses his heroin through injections. No fever no chills no cough no congestion no systemic complaints patient immunized for COVID. Related Data Home Medications Medication Instructions Recorded Confirmed diazepam 10 mg tablet (Valium) 10 mg PO TID 11/26/21 11/26/21 Previous Rx's Medication Instructions Recorded cefuroxime axetil 500 mg tablet 500 mg PO BID 7 Days #14 tab 11/27/21 Allergies Allergy/AdvReac Type Severity Reaction Status Date / Time amoxicillin [AMOXICILLIN] Allergy Unknown RASH Verified 11/24/21 02:19 Review of Systems Verdana 4l Review of Systems: Verdana 4d No fever no chills no chest Verdana 4d pain or shortness of breath Verdana 4d Yes all other systems are reviewed and are negative [facility] Past Medical History Attestation statement: The following information was validated with the patient. Medical History Active substance abuse Affective psychosis Substance abuse Social History Social History Household Members: Friend(s) Housing: Homeless Do you presently have visiting nurse or other home services: No Alcohol intake: never Patient Tobacco Use Status: Current everyday Tobacco user Tobacco use type: Cigarette Cigarettes Per Day: 10 Substance Use Type: IV Drugs Advance Directives: No service: No Current occupational status: unemployed Physical Exam Verdana 4l Vital Signs: Verdana 4d Verdana 4d Vital Signs: Verdana 4d Verdana 4Bd Last Vital Signs Verdana 4d Satellite Installation Technician New 4d Satellite Installation Technician New 4d Temp 98.7 F 12/16/21 19:41 Satellite Installation Technician New 4d Pulse 110 H 12/16/21 19:41 Satellite Installation Technician New 4d Resp 16 12/16/21 19:41 BP 152/95 H 12/16/21 19:41 Pulse Ox 97 12/16/21 19:41 BMI result Body Mass Index 20.4 Appearance: Alert. Oriented X3. No acute distress. Eyes: Pupils equal, round and reactive to light. ENT: Pharynx normal. Neck: Normal inspection. Neck supple. No lymph nodes noted. No crepitus CVS: Normal heart rate and rhythm. Pulses normal. Normal S1 and S2 Respiratory: No respiratory distress. Breath sounds normal. No Wheezing. No rales Abdomen: Soft and nontender. No rigidity. No distention. good BS x4 Skin: Skin warm and dry. Normal skin color. Normal skin turgor. Extremities: No lower extremity edema. Neurovascular intact to all extremities. No Lacerations. No Rash Neuro: Oriented X 3. No motor deficit. No sensory deficit. Moving all extermities. No slurred speech MDM - Overdose MDM Narrative Medical decision making narrative: Patient well-appearing now awake alert oriented no acute distress. Will monitor patient for 2 hours. Explained to patient the need to stop using heroin. Patient states understanding will send patient home with a take-home kit of Narcan. Patient refused detox at this time. Patient monitor in emergency department for 2 hours. Awake alert oriented did not want detox. Not suicidal not homicidal used heroin for recreational reasons. Patient is being discharged. Medical Records Attestation: I reviewed the patient's medical records. Lab Data Attestation: I reviewed the patient's lab results. Discharge Plan Discharge Clinical Impression: Opioid abuse Patient Disposition: Home, Self-Care Additional Instructions: Please stop using heroin. He almost today. Please go to detox. A dose of Narcan was given to you to take home. Please ask for help Prescriptions: No Action diazepam [Valium] 10 mg Tablet 10 mg PO TID 0RF cefuroxime axetil 500 mg tablet 500 mg PO BID 7 Days Qty: 14 0RF Referrals: Physician,Unknown J [Primary Care Provider] - 2 days
[2021-12-16 19:41] VITALS: BP 140/80; BP 152/95; PULSE 110; PULSE 120; RESP 16; TEMP 37.1; O2SAT 96; O2SAT 97; BMI 20.4
--- NOTE | 2021-12-16 20:28 | PC.NURSE ---
Pt found in room 4, going through the code cart. This RN at bedside, closing drawers and removing code cart from room. Primary RN aware. Pt transferred from room 4 into the pod for safety concerns. Per MD, plan to monitor for 1-2 hours and discharge home.
== END 2021-12-16 21:26 | disposition home or self-care (01) ==
PROVIDERS: Emergency Provider Emergency Medicine Emergency Medical Services
DX: T40.1X1A Poisoning by heroin, accidental (unintentional), initial encounter (principal); Y92.9 Unspecified place or not applicable; F11.19 Opioid abuse with unspecified opioid-induced disorder; Z71.51 Drug abuse counseling and surveillance of drug abuser; F17.210 Nicotine dependence, cigarettes, uncomplicated; Z71.6 Tobacco abuse counseling; Z79.899 Other long term (current) drug therapy
CPT/HCPCS: 99283